=== PATIENT | male | born 1985 | race Caucasian/White ===

== ENCOUNTER 2020-07-09 07:25 | Emergency (ER) | payer OTHER, SELFPAY ==
[2020-07-09 08:04] VITALS: BP 121/79; PULSE 84; RESP 16; O2SAT 98; BMI 24.3
[2020-07-09] MEDS: Lidocaine HCl 1 % MPF 5 ML VIAL SUBCUT (08:37)
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
== END 2020-07-09 09:33 | disposition home or self-care (01) ==
PROVIDERS: Emergency Provider Emergency Medicine Emergency Medical Services; PCP Internal Medicine
DX: S81.812A Laceration without foreign body, left lower leg, initial encounter (principal); W45.8XXA Other foreign body or object entering through skin, initial encounter; Y93.02 Activity, running; Y92.413 State road as the place of occurrence of the external cause; Y99.9 Unspecified external cause status
CPT/HCPCS: 12032; 90471; 90715; 99283; 99284

== ENCOUNTER 2020-07-23 09:09 | Emergency (ER) | payer OTHER, SELFPAY ==
[2020-07-23 09:10] VITALS: BP 121/79; PULSE 90; RESP 18; TEMP 37.3; O2SAT 97; BMI 24.3
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
== END 2020-07-23 09:40 | disposition home or self-care (01) ==
PROVIDERS: Emergency Provider Emergency Medicine Emergency Medical Services; PCP Internal Medicine
DX: Z48.02 Encounter for removal of sutures (principal); Z79.899 Other long term (current) drug therapy
CPT/HCPCS: 99283

== ENCOUNTER 2021-05-12 03:11 | Emergency (ER) | payer OTHER, SELFPAY ==
[2021-05-12 03:22] VITALS: BP 148/86; PULSE 70; PULSE 74; RESP 16; TEMP 36.6; O2SAT 98; BMI 28.3
[2021-05-12 03:25] LABS: Glucose, Whole Blood 71 mg/dL (60-115)
--- NOTE | 2021-05-12 03:31 | ED.GENADULT ---
HPI - General Adult General Chief complaint: General Medical Stated complaint: HYPOGLYCEMIA Time Seen by Provider: 05/12/21 03:31 Source: patient Mode of arrival: ambulatory Limitations: no limitations History of Present Illness HPI narrative: patient took his normal amount of insulin and he did not eat enough, he felt fine all day. His girlfriend called the ambulance and he was confused. EMS gave him oral glucose but he still did not wake up. Onset (ago): minute(s) Severity: severe Associated symptoms: denies other symptoms Related Data Previous Rx's Medication Instructions Recorded pen needle, diabetic 32 gauge x #50 ea 05/05/2008/10 (Comfort EZ Pen [place]) insulin NPH isoph U-100 human 100 48 unit (0.48 mL) SUBCUT BID 01/07/21 unit/mL subcutaneous suspension Days #86.4 ml (Humulin N NPH U-100 Insulin (isophane susp)) insulin lispro 100 unit/mL 10 unit (0.1 mL) SUBCUT TID 02/08/21 subcutaneous solution (Humalog Days #27 ml U-100 Insulin) Allergies Allergy/AdvReac Type Severity Reaction Status Date / Time No Known Allergies Allergy Verified 07/23/20 09:14 Pet dander Allergy Unknown Unresponsiv Uncoded 07/23/20 09:14 e Review of Systems Constitutional: Constitutional: Reports no additional constitutional complaints Eyes: Eyes: Reports no additional eye complaints ENT: Denies dizziness Cardiovascular: Cardiovascular: Reports no additional cardiovascular complaints Respiratory: Respiratory: Reports as per HPI Gastrointestinal: Gastrointestinal: Reports no additional gastrointestinal complaints Musculoskeletal: Musculoskeletal: Reports no additional musculoskeletal complaints Integumentary/Breasts: Skin/Breast: Denies rash Neurologic: Reports system reviewed and no additional complaints, except as documented, Denies dizziness and Denies Sensory deficit (Neuro) Psychiatric: Psychiatric: Denies anxiety PMFSH Past Medical History Medical History 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, 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 Social History Social History Housing: Apartment Alcohol intake: unknown Patient Tobacco Use Status: Current someday Tobacco user Tobacco use type: Cigarette Use of substances other than those prescribed or required for medical reasons: Unknown Advance Directives: No Advance Directives Information Provided: Yes Current occupational status: employed Physical Exam Vital Signs: Vital Signs: Last Vital Signs Temp 97.4 F 05/12/21 04:18 Pulse 73 05/12/21 04:18 Resp 17 05/12/21 04:18 BP 126/87 05/12/21 04:18 Pulse Ox 97 05/12/21 04:18 BMI result Body Mass Index 28.3 Const: General: healthy appearing Nutritional Appearance: average body habitus Orientation/consciousness: oriented to person and patient oriented x3 Limitations: no limitations HENMT: Head: Yes normal to inspection Ears: external ears normal General nose exam: Normal external nose present Mouth: Normal oral and palatal mucosa present and oropharynx normal Throat: Yes posterior oropharynx normal Eyes: General: appearance normal, both eyes and all related structures Neck: Other: supple Neck: Yes normal visual inspection Chest: Chest palpation & inspection: normal inspection of the chest Resp: Auscultation: clear to auscultation bilaterally Cardio: Jugular venous distension: no JVD Rate: regular rate Rhythm: regular rhythm Heart sounds: S1 normal heart sound present and S2 normal heart sound present GI: Inspection: Yes normal to inspection Palpation (GI): Soft to palpation, nontender and No hepatosplenomegaly present Auscultation: normal bowel sounds : General: Yes no CVA tenderness Back/Spine/Pelvis: Back: no CVA tenderness Skin: General skin exam: no rashes or lesions noted Neuro: General: oriented to person and patient oriented x3 Cranial nerves: Yes CN's II-XII intact bilaterally Motor exam (neuro): 5/5 motor strength present throughout Sensory Exam: No Sensory deficit (Neuro) Extrem: General: Yes normal to inspection Psych: Appearance: grossly normal Course Reevaluation(s) Reevaluation #1: patients sugar now 145, he is awake and alert, will dc home Time: 04:44 Medical Decision Making Lab Data Labs: Lab Results 05/12/21 Range/Units 03:20 POC Glucose 71 (60-115) mg/dL Discharge Plan Discharge Clinical Impression: Hypoglycemia Patient Disposition: Home, Self-Care Instructions: Hypoglycemia in a Person with Diabetes (ED) Prescriptions: No Action (DME) pen needle, diabetic [Comfort EZ Pen [place]] 32 gauge x 3/16 needle See Rx Instructions .ROUTE .MEDSUPPLY Qty: 50 RF: 0 insulin lispro [Humalog U-100 Insulin] 100 unit/mL solution 10 unit subcut TID 90 Days Qty: 27 RF: 1 Humulin N NPH U-100 Insulin 100 unit/mL suspension 48 unit subcut BID 90 Days Qty: 86.4 RF: 1 Referrals: Physician,Unknown J [Primary Care Provider] - 5 days
[2021-05-12 04:18] VITALS: BP 126/87; PULSE 73; RESP 17; TEMP 36.3; O2SAT 97
[2021-05-12 04:47] LABS: Glucose, Whole Blood 142 mg/dL (60-115)
== END 2021-05-12 05:02 | disposition home or self-care (01) ==
PROVIDERS: Emergency Provider Emergency Medicine
DX: E10.649 Type 1 diabetes mellitus with hypoglycemia without coma (principal); Z79.4 Long term (current) use of insulin
CPT/HCPCS: 82947; 99283; 99284

== ENCOUNTER 2021-07-08 09:08 | Outpatient (REF) | payer OTHER, SELFPAY ==
[2021-07-08 11:40] LABS: Estimated Average Glucose 143 mg/dL; Hemoglobin A1c % 6.6 %
[2021-07-08 12:33] LABS: Creatinine Urine 40.58 mg/dL; Microalbumin Urine < 5.0 mg/L
[2021-07-08 13:18] LABS: Alanine Aminotransferase 20 U/L (0-40); Alkaline Phosphatase 78 U/L (39-117); Anion Gap 14 (12-20); Aspartate Amino Transferase 23 U/L (5-37); Bilirubin Total 0.8 mg/dL (0.0-1.0); Blood Urea Nitrogen 14 mg/dL (9-16); Calcium 9.5 mg/dL (8.4-10.2); Carbon Dioxide 24 mmol/L (22-29); Chloride 102 mmol/L (96-108); Cholesterol 166 mg/dL; Estimated Glomerular Filt Rate > 60; HDL Cholesterol 52 mg/dL; LDL Cholesterol Calculated 107 mg/dl; Sodium 135 mmol/L (135-145); Triglycerides 38 mg/dL
[2021-07-08 13:44] LABS: Glucose Fasting 368 mg/dL (60-99)
[2021-07-09 14:56] LABS: LDL Cholesterol Direct 107 mg/dL (<100)
== END 2021-07-08 09:09 | disposition home or self-care (01) ==
LOC: HO.HMGCLDS 09:08
PROVIDERS: Visit Provider Internal Medicine
DX: E13.9 Other specified diabetes mellitus without complications (principal); Z79.4 Long term (current) use of insulin; Z91.19 Patient's noncompliance with other medical treatment and regimen
CPT/HCPCS: 36415; 80053; 80061; 82043; 83036; 83721

== ENCOUNTER 2021-11-01 18:06 | Emergency (ER) | payer OTHER, SELFPAY ==
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
[2021-11-01 18:14] VITALS: BP 147/81; PULSE 108; RESP 18; TEMP 36.8; O2SAT 96; BMI 25.8
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
== END 2021-11-01 19:51 | disposition home or self-care (01) ==
PROVIDERS: Emergency Provider Emergency Medicine; PCP Internal Medicine
DX: M25.562 Pain in left knee (principal); E13.9 Other specified diabetes mellitus without complications; Z79.4 Long term (current) use of insulin; F17.200 Nicotine dependence, unspecified, uncomplicated
CPT/HCPCS: 73560; 99283

== ENCOUNTER 2023-01-09 14:30 | Outpatient (AMB) | payer OTHER, SELFPAY ==
--- NOTE | 2023-01-09 14:31 | A.OFFPC_ITS ---
Vital Signs 01/09/23 14:35 Height 5 ft 10 in Weight 181 lb BMI 26.0 BP 132/86 Blood Pressure Location Lt brachial Position Sitting Pulse 79 Pulse Source Pulse Oximeter Pulse Oximetry (%) 98 Oxygen Delivery Method Room Air Intake Visit Reasons: pe Allergies No Known Allergies Allergy (Verified 01/09/23 14:36) Pet dander Allergy (Unknown, Uncoded 01/13/22 15:34) Unresponsive Medication List - Last Reconciled 01/09/23 by Jay Cunha MD blood-glucose sensor (FreeStyle Vishnu 3 Sensor device) Use to monitor blood lee gars throughout the day Humalog U-100 Insulin (insulin lispro) 15 units (0.15 mL) subcut TID 90 days NS insulin NPH isoph U-100 human (Humulin N NPH U-100 Insulin (isophane susp)) 48 units in the morning and 28 units at night subcut 2 times a day; 90 days pen needle, diabetic (Comfort EZ Pen [place]) As directed Tobacco use date assessed: 01/09/23 Dental Screening Dental Screen Date: 01/09/23 Did you have a dental visit in the last 12 months?: Yes Did you have a dental problem in the last 6 months where you did not have access to dental care?: No Was dental information given to patient?: No HPI pe HPI Details Due for labs Need refills on his insulin Notified patient to have labs done every time he comes here as he is coming every 6 months for follow-up Complaining of pain right test is for the past 1 month, patient says that it feels sore when touched. On examination it feels firmer and slightly enlarged compared to left . I have ordered scrotal ultrasound and I have also placed a referral for him to be evaluated by Urology. [facility] Medical History 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, managed as type 1 [facility]FP (current) use of insulin Social History Housing: Apartment Alcohol intake: unknown Patient Tobacco Use Status: Current someday Tobacco user Tobacco use type: Cigarette Cigarettes Per Day: 5 e-Cigarette/Vaping Use: Never Used service: No Current occupational status: employed Cognitive needs: No Hearing needs: No Vision needs: No Questionnaire PHQ-9 Over the last 2 weeks, how often have you been bothered by any of the following problems? 1. Little interest or pleasure in doing things: not at all 2. Feeling down, depressed, or hopeless: not at all 3. Trouble falling or staying asleep, or sleeping too much: not at all 4. Feeling tired or having little energy: not at all 5. Poor appetite or overeating: not at all 6. Feeling bad about yourself - or that you are a failure or have let yourself or your family down: not at all 7. Trouble concentrating on things, such as reading the newspaper or watching television: not at all 8. Moving or speaking so slowly that other people could have noticed. Or the opposite - being so fidgety or restless that you have been moving around a lot more than usual: not at all 9. Thoughts that you would be better off or of hurting yourself in some way: not at all Total score: 0 Depression Screening Interpretation: Negative 21665 - PHQ-9 Billing: Yes Source: Developed by Drs. Roland Mcdermott, Ann Stafford, Jay Zendejas and colleagues, with an educational rohith from [employer]. Thrive Questionnaire Date Thrive assessed: 01/09/23 I am a: Patient What is your living situation today?: I have a steady place to live Within the past 12 months, did the food you bought not last and you didn't have the money to get more?: Never true Within the past 12 months, did you worry whether your food would run out before you got money to buy more?: Never true Do you have trouble paying for medicines?: No Do you have trouble getting transportation to medical appointments?: No Do you have trouble paying your heating and electricity bill?: No Do you have trouble taking care of your child, family member or friend?: No Do you have trouble with day-to-day activities such as bathing, preparing meals, shopping, managing finances, etc.?: No Are you currently unemployed and looking for a job?: No Are you interested in more education?: No AUDIT C Alcohol Use Questionnaire (AUDIT-C) 1. How often do you have a drink containing alcohol?: 2-3 times a week 2. How many drinks containing alcohol do you have on a typical day when you are drinking?: 3 or 4 3. How often do you have six or more drinks on one occasion?: Never Total Score: 4 Score Reviewed/Action Taken: Yes MERRILL-7 AMB Questionnaire MERRILL-7 Date MERRILL - 7 assessed: 01/09/23 Feeling nervous, anxious, or on edge: 0 = Not at all Not being able to stop or control worryin = Not at all Worrying too much about different things: 0 = Not at all Trouble relaxin = Not at all Being so restless that it is hard to sit still: 0 = Not at all Becoming easily annoyed or irritable: 0 = Not at all Feeling afraid as if something awful might happen: 0 = Not at all Total MERRILL-7 score (0-4 normal; 5-9 mild; 10-14 moderate; 15-21 severe): 0 Source: Developed by Drs. Roland Mcdermott, Ann Stafford, Jay Zendejas and colleagues, with an educational rohith from [employer]. MERRILL-7 Assessment Billing MERRILL-7 Assessment Tool: MERRILL-7 Assessment 93055 Review of Systems Const Denies chills, Denies fever(s) and Denies headache(s) Eyes Denies blurry vision ENT Denies headache(s), Denies nasal discharge, Denies nasal obstruction, Denies odynophagia and Denies sinus pain Card Denies chest pain at rest and Denies chest pain with activity Resp Denies cough and Denies hemoptysis GI Denies diarrhea, Denies odynophagia, Denies vomiting and Denies hematemesis Reports as per HPI Musc Denies abnormal gait Skin/Breast Reports as per HPI Neuro Denies Neuro-related abnormal movements, Denies Abnormal speech present, Denies abnormal gait, Denies headache(s) and Denies Sensory deficit (Neuro) Psych Denies mood swings and Denies paranoia Endo Reports as per HPI Alireza/Lymph Reports as per HPI Aller/Immun Reports as per HPI Physical exam (Primary Care) Vital Signs: Last Vital Signs Pulse 79 01/09/23 14:35 BP 132/86 01/09/23 14:35 Pulse Ox 98 01/09/23 14:35 Oxygen Delivery Method Room Air 01/09/23 14:35 BMI result Body Mass Index 26.0 Tobacco/Smoking Status: Tobacco use Status Tobacco use date assessed 01/09/23 01/09/23 14:36 Patient Tobacco Use Status Current someday Tobacco 01/09/23 14:32 Tobacco use type Cigarette 01/09/23 14:32 e-Cigarette/Vaping Use Never Used 01/09/23 14:32 PHQ-9: PHQ-9 Score PHQ-9: Total score 0 01/09/23 15:12 Depression Screening Interpretation: Negative Thrive Assessment: Date of Thrive Assessment Date Thrive assessed 01/09/23 01/09/23 15:12 Const General: cooperative, comfortable and no acute distress Orientation/consciousness: patient oriented x3 HENMT Head: Yes normocephalic and Yes atraumatic Eyes General: appearance normal, both eyes and all related structures Pupils: Equal, round and reactive pupils present EOM: EOMs intact bilaterally Neck Neck: Yes supple and No lymphadenopathy Thyroid: Thyroid normal Lymphatic: no lymphadenopathy noted Resp Effort & Inspection: normal respiratory effort and able to speak in complete sentences Auscultation: clear to auscultation bilaterally Cardio Heart sounds: S1 normal heart sound present and S2 normal heart sound present GI Palpation (GI): Soft to palpation and nontender Auscultation: normal bowel sounds General: Yes no CVA tenderness Male genitals images: 1. Firmer and larger than left Back/Spine/Pelvis Back: no CVA tenderness Skin General skin exam: elasticity normal and turgor normal Neuro General: patient oriented x3 and gait normal Cranial nerves: Yes Equal, round and reactive pupils present Speech: No Abnormal speech present Sensory Exam: No Sensory deficit (Neuro) Coordination: tandem gait normal and Romberg test negative Extrem General: Yes normal exam except as noted and No edema Assessment and Plan Assessment & Plan (1) Encounter for general adult medical examination with abnormal findings: Code(s): Z00.01 - Encounter for general adult medical examination with abnormal findings (2) 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, managed as type 1: Code(s): E13.9 - Other specified diabetes mellitus without complications (3) MCFP (current) use of insulin: Code(s): Z79.4 - [facility]FP (current) use of insulin (4) Testicular pain, right: Code(s): N50.811 - Right testicular pain Plan Due for labs Need refills on his insulin Notified patient to have labs done every time he comes here as he is coming every 6 months for follow-up Complaining of pain right test is for the past 1 month, patient says that it feels sore when touched. On examination it feels firmer and slightly enlarged compared to left . I have ordered scrotal ultrasound and I have also placed a referral for him to be evaluated by Urology. Orders: Orders Comprehensive Met. Panel Today E13.9 - Other specified diabetes mellitus without complications, Z00.01 - Encounter for general adult medical examination with abnormal findings, Z79.4 - extermination inspector (current) use of insulin Hemoglobin A1c Today E13.9 - Other specified diabetes mellitus without complications, Z00.01 - Encounter for general adult medical examination with abnormal findings, Z79.4 - [facility] (current) use of insulin LDL Cholesterol Direct Today E13.9 - Other specified diabetes mellitus without complications, Z00.01 - Encounter for general adult medical examination with abnormal findings, Z79.4 - [facility] (current) use of insulin Microalbumin, Random (w Creat) Today E13.9 - Other specified diabetes mellitus without complications, Z00.01 - Encounter for general adult medical examination with abnormal findings, Z79.4 - extermination inspector (current) use of insulin Complete Blood Count Auto Diff Today E13.9 - Other specified diabetes mellitus without complications, Z00.01 - Encounter for general adult medical examination with abnormal findings, Z79.4 - extermination inspector (current) use of insulin US scrotum Today N50.811 - Right testicular pain Comprehensive Met. Panel 6 Months E13.9 - Other specified diabetes mellitus without complications, Z79.4 - extermination inspector (current) use of insulin Hemoglobin A1c 6 Months E13.9 - Other specified diabetes mellitus without complications, Z79.4 - [facility] (current) use of insulin Referrals Urology Referral N50.811 - Right testicular pain Medications: Refilled insulin NPH isoph U-100 human (Humulin N NPH U-100 Insulin (isophane susp)) 48 units in the morning and 28 units at night subcut 2 times a day; 86.4 mL 1RF 90 days E13.9 - Other specified diabetes mellitus without complications, Z79.4 - [facility] (current) use of insulin Humalog U-100 Insulin (insulin lispro) 15 units (0.15 mL) subcut TID 30 mL 1RF 90 days NS Coding Level of Care Code Est Pt Prev Care 18-39y(57318) Diagnoses Encounter for general adult medical examination with abnormal findings Z00.01 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, managed as type 1 E13.9 [facility]FP (current) use of insulin Z79.4 Testicular pain, right N50.811 Additional Codes MERRILL-7 Assessment Billing - MERRILL-7 Assessment Tool: MERRILL-7 Assessment 93254 ([id number])
[2023-01-09 14:35] VITALS: BP 132/86; PULSE 79; O2SAT 98; BMI 26.0
== END 2023-01-09 15:58 | disposition home or self-care (01) ==
PROVIDERS: Visit Provider Internal Medicine
DX: Z00.01 Encounter for general adult medical examination with abnormal findings (principal); E13.9 Other specified diabetes mellitus without complications; Z79.4 Long term (current) use of insulin; N50.811 Right testicular pain
CPT/HCPCS: 99395

== ENCOUNTER 2023-01-09 14:56 | Outpatient (REF) | payer OTHER, SELFPAY ==
[2023-01-09 16:15] LABS: Basophils Absolute Auto 0.1 X10*3/uL (0.0-0.2); Basophils Percent Auto 0.7 % (0-2); Eosinophils Absolute Auto 0.2 X10*3/uL (0.0-0.4); Eosinophils Percent Auto 2.2 % (0-4); Hematocrit 43.6 % (42.0-52.0); Hemoglobin 14.1 g/dl (14.0-18.0); Imm Gran Abs Auto 0.05 X10*3/uL (0.00-0.03); Imm Gran Pct Auto 0.7 % (0.0-0.4); Lymphocytes Absolute Auto 1.5 X10*3/uL (1.2-4.9); MANUAL DIFF FLAG NO; Mean Corpuscular HGB Conc 32.3 g/dl (31.0-36.0); Mean Corpuscular Hemoglobin 29.6 pg (27.0-33.0); Mean Corpuscular Volume 91.4 fL (80.0-98.0); Mean Platelet Volume 10.1 fL (9.4-12.4); Monocytes Absolute Auto 0.4 X10*3/uL (0.1-1.2); Neutrophils Absolute Auto 5.1 x10*3/uL (2.0-8.3); Neutrophils Percent Auto 69.4 % (45-73); Platelet Count 414 X10*3/uL (160-400); Red Blood Count 4.77 X10*6/uL (4.60-5.80); Red Cell Distribution Width 12.7 % (11.0-16.0); White Blood Count 7.3 X10*3/uL (4.8-10.8)
[2023-01-09 16:32] LABS: Estimated Average Glucose 151 mg/dL; Hemoglobin A1c % 6.9 %
[2023-01-09 16:35] LABS: Alanine Aminotransferase 17 U/L (0-40); Albumin Level 4.5 g/dL (3.5-5.0); Alkaline Phosphatase 77 U/L (39-117); Anion Gap 13 (12-20); Aspartate Amino Transferase 24 U/L (5-37); Bilirubin Total 0.5 mg/dL (0.0-1.0); Blood Urea Nitrogen 13 mg/dL (9-16); Calcium 9.9 mg/dL (8.4-10.2); Carbon Dioxide 33 mmol/L (22-29); Chloride 101 mmol/L (96-108); Estimated Glomerular Filt Rate > 60; Glucose Random 91 mg/dL (60-115); Potassium 4.5 mmol/L (3.3-5.1); Sodium 142 mmol/L (135-145); Total Protein 7.8 g/dL (6.5-8.0)
[2023-01-09 16:50] LABS: Creatinine Urine 41.14 mg/dL; Microalbumin Urine < 5.0 mg/L
[2023-01-10 11:24] LABS: LDL Cholesterol Direct 112 mg/dL (<100)
== END 2023-01-09 14:57 | disposition home or self-care (01) ==
LOC: HO.HMGCLDS 14:56
PROVIDERS: PCP Internal Medicine; Visit Provider Internal Medicine
DX: Z00.01 Encounter for general adult medical examination with abnormal findings (principal); E13.9 Other specified diabetes mellitus without complications; Z79.4 Long term (current) use of insulin
CPT/HCPCS: 36415; 80053; 82043; 83036; 83721; 85025

== ENCOUNTER 2023-01-16 14:27 | Outpatient (REF) | payer OTHER, SELFPAY ==
--- NOTE | ~2023-01-16 | US_ITS ---
EXAMINATION: US SCROTUM CLINICAL INFORMATION: Right testicular pain. COMPARISON: CT abdomen and pelvis without contrast 06/23/2014. TECHNIQUE: A sonogram of the scrotum was performed assessing de leon-scale appearance and color Doppler flow. Spectral Doppler analysis of the arterial and venous flow were performed in the testes bilaterally. FINDINGS: RIGHT: Right testicle measures 4.77 x 2.20 x 2.96 cm, volume 16.3 mL. No focal testicular parenchymal lesions are visualized. Spectral Doppler analysis of the arterial and venous flow is normal in the right testis. There is a 3 mm scrotal chu. Right epididymal head is normal in size. Small hydrocele. Small varicocele. Right epididymal Doppler flow is normal. LEFT: Left testicle measures 3.86 x 1.78 x 2.16 cm, volume 7.77 mL. No focal testicular parenchymal lesions are visualized. Spectral Doppler analysis of the arterial and venous flow is normal in the left testis. Left epididymal head is normal in size. Small hydrocele. Small varicocele. Left epididymal Doppler flow is normal. US/US scrotum IMPRESSION: Normal testicles. Small bilateral varicoceles. Small bilateral hydroceles.
== END 2023-01-16 14:28 | disposition home or self-care (01) ==
LOC: HO.HMGCX 14:27
PROVIDERS: PCP Internal Medicine; Visit Provider Internal Medicine
DX: N50.811 Right testicular pain (principal)
CPT/HCPCS: 76870

== ENCOUNTER 2023-03-12 14:57 | Outpatient (AMB) | payer OTHER, SELFPAY ==
--- NOTE | 2023-03-12 15:00 | MHC.OFFVIS ---
Intake Intake Visit Reasons: Hydrocele//varicoceles Intake Note: NEW Patient presents today to established treatment for Hydrocele & Varicoceles: Meds- None Allergies to Antibiotic- No Known Allergies Blood Thinner- None Body Piercer Required: No Accompanied by: Self / Same As Patient Allergies No Known Allergies Allergy (Verified 01/09/23 14:36) Pet dander Allergy (Unknown, Uncoded 01/13/22 15:34) Unresponsive HPI HPI Comments History of Present Illness Details Eduardo is a 37-year-old male who presents today to the office to establish as a new patient for an evaluation of Testicular pain. 03/12/23? He has a past medical history significant for diabetes. Patient states having right testicular pain for a several weeks. He rates the pain as 3-4/10. He has not needed to use any medication for pain relief. He is concerned because he felt that the right testicle was firmer than the left. I reviewed Scotal US results: no intra testicular masses noted, normal blood flow. small bilateral varicoceles and small bilateral hydroceles which are not clinically significant. Evaluation today?UA? leukocytes: negative; blood: negative. Plan: Conservative management, supportive athletic shorts. 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 Mother No problems noted. Social History Housing: Apartment Alcohol intake: unknown Patient Tobacco Use Status: Current someday Tobacco user Tobacco use type: Cigarette Cigarettes Per Day: 5 e-Cigarette/Vaping Use: Never Used service: No Current occupational status: employed Cognitive needs: No Hearing needs: No Vision needs: No Review of Systems Const All systems reviewed & are unremarkable except as noted in HPI and below Reports no additional complaints Eyes Reports no additional complaints ENT Reports no additional complaints Card Denies dyspnea Resp Denies cough and Denies dyspnea GI Reports no additional complaints Musc Reports no additional complaints Skin/Breast Denies rash and Denies unusual bruising Neuro Reports no additional complaints Psych Reports no additional complaints Endo Reports no additional complaints Alireza/Lymph Reports no additional complaints Aller/Immun Reports no additional complaints Physical Exam Const General: healthy appearing, no acute distress and well developed Orientation/consciousness: patient oriented x3 HEENT Head: Yes normocephalic and Yes atraumatic Eyes Conjunctivae: conjunctivae normal Neck Neck: Yes normal visual inspection Chest Chest palpation & inspection: normal inspection of the chest Resp Effort & Inspection: normal respiratory effort Cardio Rate: regular rate GI Inspection: Yes normal to inspection Palpation (GI): Soft to palpation Penis: normal penis Scrotum: scrotum normal Skin General skin exam: no rashes or lesions noted Neuro General: patient oriented x3 Extrem General: No pedal edema Psych Appearance: grossly normal Affect: normal affect Results AMB Urinalysis, Automated UA Leukoctes 0 Katie/uL Last Edit by Hannah Hensley [facility] on 03/12/23 15:20 UA Nitrite Negative Last Edit by Hannah Hensley [facility] on 03/12/23 15:20 UA Urobilinogen 0.2 mg/dL Last Edit by Hannah Hensley [facility] on 03/12/23 15:20 UA Protein 0 mg/dL Last Edit by Hannah Hensley [facility] on 03/12/23 15:20 UA pH 6.5 Last Edit by Hannah Hensley [facility] on 03/12/23 15:20 UA Blood 0 Alexandru/uL Last Edit by Hannah Hensley [facility] on 03/12/23 15:20 UA Specific [place] 1.015 Last Edit by Hannah Hensley [facility] on 03/12/23 15:20 UA Ketone Negative Last Edit by Hannah Hensley [facility] on 03/12/23 15:20 UA Bilirubin 0 mg/dL Last Edit by Hannah Hensley [facility] on 03/12/23 15:20 UA Glucose 1000 mg/dL Last Edit by Hannah Hensley [facility] on 03/12/23 15:20 3+ Hannah Hensley 03/12/23 15:20 Results Reviewed Results Reviewed: Laboratory Last Values Urine pH (Auto) 6.5 03/12/23 15:18 Specific [place] (Auto) 1.015 03/12/23 15:18 Urine Protein (Auto) 0 mg/dL 03/12/23 15:18 Glucose (UA)(Auto) 1000 mg/dL 03/12/23 15:18 Urine Ketones (Auto) Negative 03/12/23 15:18 Urine Blood (Auto) 0 Alexandru/uL 03/12/23 15:18 Urine Nitrite (Auto) Negative 03/12/23 15:18 Urine Bilirubin (Auto) 0 mg/dL 03/12/23 15:18 Urine Urobilinogen (Auto) 0.2 mg/dL 03/12/23 15:18 Leukocyte Esterase (Auto) 0 Katie/uL 03/12/23 15:18 Date of Service: 01/16/23 EXAMINATION: US SCROTUM CLINICAL INFORMATION: Right testicular pain. COMPARISON: CT abdomen and pelvis without contrast 06/23/2014. TECHNIQUE: A sonogram of the scrotum was performed assessing de leon-scale appearance and color Doppler flow. Spectral Doppler analysis of the arterial and venous flow were performed in the testes bilaterally. FINDINGS: RIGHT: Right testicle measures 4.77 x 2.20 x 2.96 cm, volume 16.3 mL. No focal testicular parenchymal lesions are visualized. Spectral Doppler analysis of the arterial and venous flow is normal in the right testis. There is a 3 mm scrotal chu. Right epididymal head is normal in size. Small hydrocele. Small varicocele. Right epididymal Doppler flow is normal. LEFT: Left testicle measures 3.86 x 1.78 x 2.16 cm, volume 7.77 mL. No focal testicular parenchymal lesions are visualized. Spectral Doppler analysis of the arterial and venous flow is normal in the left testis. Left epididymal head is normal in size. Small hydrocele. Small varicocele. Left epididymal Doppler flow is normal. IMPRESSION: Normal testicles. Small bilateral varicoceles. Small bilateral hydroceles. Assessment & Plan Assessment & Plan (1) Testicular pain, right: Code(s): N50.811 - Right testicular pain Plan Conservative management, wearing supportive athletic shorts.? FU prn Orders: Orders AMB Urinalysis Automated 03/12/23 Z13.9 - Encounter for screening, unspecified Patient Instructions: The patient had an opportunity to ask questions regarding treatment plan. All questions were answered. Imaging, Laboratory studies and physical exam results were discussed and reviewed in detail. No major barriers to understanding were identified. The patient expressed understanding and agreement with the above treatment plan.? ? ? The patient is aware they should contact our office by phone for worsening of their current condition or the appearance of new symptoms. Compliance is encouraged with any medications and followup testing that is ordered.? ? ? It is a privilege to be allowed the opportunity to participate in the urologic care of your patient. If you have any questions or concerns regarding treatment for the above conditions please do not hesitate to contact me. The office telephone contact is [phone].? ? ? This note is constructed in part using voice recognition software. While every effort has been made to ensure accuracy treasury consultant errors may have been included.? ? ? Yours sincerely,? ? ? Milton Nevarez MD? ? Coding Level of Care Code New Pt Level 3 (43805) Diagnoses Testicular pain, right N50.811
== END 2023-03-12 16:12 | disposition home or self-care (01) ==
PROVIDERS: PCP Internal Medicine; Referring Provider Internal Medicine; Visit Provider Urology
DX: N50.811 Right testicular pain (principal)
CPT/HCPCS: 99203

== ENCOUNTER → 2023-03-12 14:57 | Outpatient (BNVA) | payer OTHER, SELFPAY | PROVIDERS: PCP Internal Medicine; Referring Provider Internal Medicine; Visit Provider Urology | DX: N50.811 Right testicular pain (principal) | CPT/HCPCS: 81003 ==

== ENCOUNTER 2023-08-14 13:31 | Outpatient (AMB) | payer OTHER, SELFPAY ==
[2023-08-14 13:42] VITALS: BP 128/80; PULSE 91; O2SAT 98; BMI 25.0
--- NOTE | 2023-08-14 13:42 | MHC.PC.OV ---
Vital Signs 08/14/23 13:42 Height 5 ft 10 in Weight 174 lb 4 oz BMI 25.0 BP 128/80 Blood Pressure Location Rt brachial Position Sitting Pulse 91 Pulse Source Pulse Oximeter Pulse Oximetry (%) 98 Oxygen Delivery Method Room Air Intake Visit Reasons: Overdue Appt ~ Allergies No Known Allergies Allergy (Verified 08/14/23 13:47) Pet dander Allergy (Unknown, Uncoded 01/13/22 15:34) Unresponsive Medication List - Last Reconciled 08/14/23 by Jay Cunha MD blood-glucose sensor (FreeStyle Vishnu 3 Sensor device) Use to monitor blood sugars throughout the day insulin lispro 15 units (0.15 mL) subcut TID insulin NPH isoph U-100 human (Humulin N NPH U-100 Insulin (isophane susp)) 48 units in the morning and 28 units at night subcut 2 times a day; 90 days pen needle, diabetic (Comfort EZ Pen [place]) As directed Tobacco use date assessed: 08/14/23 Dental Screening Dental Screen Date: 08/14/23 Did you have a dental visit in the last 12 months?: Yes Did you have a dental problem in the last 6 months where you did not have access to dental care?: No Was dental information given to patient?: Patient has dentist HPI Overdue Appt ~ HPI Details Patient is 38-year-old gentleman came in today for his regular follow-up appointment Last time seen was December of last year. He also did not do his labs before this visit. He is on NPH insulin 48 units in the morning and 28 units in p.m. And lispro insulin 10 units t.i.d. His hemoglobin A1c is stable Labs to be done fasting before next visit. 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 Mother No problems noted. Social History Housing: Apartment Alcohol intake: unknown Patient Tobacco Use Status: Current someday Tobacco user Tobacco use type: Cigarette Cigarettes Per Day: 5 e-Cigarette/Vaping Use: Never Used service: No Current occupational status: employed Cognitive needs: No Hearing needs: No Vision needs: No Questionnaire PHQ-9 Over the last 2 weeks, how often have you been bothered by any of the following problems? 1. Little interest or pleasure in doing things: not at all 2. Feeling down, depressed, or hopeless: not at all 3. Trouble falling or staying asleep, or sleeping too much: not at all 4. Feeling tired or having little energy: not at all 5. Poor appetite or overeating: not at all 6. Feeling bad about yourself - or that you are a failure or have let yourself or your family down: not at all 7. Trouble concentrating on things, such as reading the newspaper or watching television: not at all 8. Moving or speaking so slowly that other people could have noticed. Or the opposite - being so fidgety or restless that you have been moving around a lot more than usual: not at all 9. Thoughts that you would be better off or of hurting yourself in some way: not at all Total score: 0 Depression Screening Interpretation: Negative Depression Screening Done: Yes 29398 - PHQ-9 Billing: Yes Source: Developed by Drs. Roland Mcdermott, Ann Stafford, Jay Zendejas and colleagues, with an educational rohith from [employer] Thrive Questionnaire Date Thrive assessed: 08/14/23 I am a: Patient What is your living situation today?: I have a steady place to live Within the past 12 months, did the food you bought not last and you didn't have the money to get more?: Never true Within the past 12 months, did you worry whether your food would run out before you got money to buy more?: Never true Do you have trouble paying for medicines?: No Do you have trouble getting transportation to medical appointments?: No Do you have trouble paying your heating and electricity bill?: No Do you have trouble taking care of your child, family member or friend?: No Do you have trouble with day-to-day activities such as bathing, preparing meals, shopping, managing finances, etc.?: No Are you currently unemployed and looking for a job?: No Are you interested in more education?: Yes Please select the resources that you would like help with: None Currently or been in a relationship where the following occur: no concerns reported THRIVE Score: 0 MERRILL-7 AMB Questionnaire MERRILL-7 Date MERRILL - 7 assessed: 08/14/23 Feeling nervous, anxious, or on edge: 0 = Not at all Not being able to stop or control worryin = Not at all Worrying too much about different things: 0 = Not at all Trouble relaxin = Not at all Being so restless that it is hard to sit still: 0 = Not at all Becoming easily annoyed or irritable: 0 = Not at all Feeling afraid as if something awful might happen: 0 = Not at all Total MERRILL-7 score (0-4 normal; 5-9 mild; 10-14 moderate; 15-21 severe): 0 Source: Developed by Drs. Roland Mcdermott, Ann Stafford, Jay Zendejas and colleagues, with an educational rohith from [employer] MERRILL-7 Assessment Billing MERRILL-7 Assessment Tool: MERRILL-7 Assessment 02090 Review of Systems Const Denies chills and Denies fever(s) ENT Denies epistaxis and Denies nasal discharge Card Denies chest pain Resp Denies chest congestion, Denies cough and Denies hemoptysis GI Denies diarrhea and Denies nausea Skin/Breast Denies rash Neuro Reports no additional complaints Psych Reports no additional complaints Endo Reports no additional complaints Physical exam (Primary Care) Vital Signs: Last Vital Signs Pulse 91 08/14/23 13:42 BP 128/80 08/14/23 13:42 Pulse Ox 98 08/14/23 13:42 Oxygen Delivery Method Room Air 08/14/23 13:42 BMI result Body Mass Index 25.0 Tobacco/Smoking Status: Tobacco use Status Tobacco use date assessed 08/14/23 08/14/23 13:45 Patient Tobacco Use Status Current someday Tobacco 08/14/23 13:45 Tobacco use type Cigarette 08/14/23 13:45 e-Cigarette/Vaping Use Never Used 08/14/23 13:45 PHQ-9: PHQ-9 Score PHQ-9: Total score 0 08/14/23 13:57 Depression Screening Interpretation: Negative Thrive Assessment: Date of Thrive Assessment Date Thrive assessed 08/14/23 08/14/23 13:55 Currently or been in a relationship where the following occur: no concerns reported Const General: cooperative, comfortable and no acute distress Orientation/consciousness: patient oriented x3 HENMT Head: Yes normocephalic Eyes General: appearance normal, both eyes and all related structures Neck Neck: Yes supple Resp Effort & Inspection: normal respiratory effort, no cough and no stridor Cardio Rhythm: regular rhythm Heart sounds: S1 normal heart sound present and S2 normal heart sound present Skin General skin exam: turgor normal Neuro General: patient oriented x3, tone normal and moves all extremities Extrem Right lower extremity: no edema Left lower extremity: no edema Assessment and Plan Assessment & Plan (1) 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, managed as type 1: Code(s): E13.9 - Other specified diabetes mellitus without complications (2) rat exterminator (current) use of insulin: Code(s): Z79.4 - rat exterminator (current) use of insulin (3) Ex-smoker: Code(s): Z87.891 - Personal history of nicotine dependence Plan Patient is 38-year-old gentleman came in today for his regular follow-up appointment Last time seen was December of last year. He also did not do his labs before this visit. He is on NPH insulin 48 units in the morning and 28 units in p.m. And lispro insulin 10 units t.i.d. His hemoglobin A1c is stable Labs to be done fasting before next visit. And also this visit Patient has stopped smoking since his last visit He has appointment in December for physical exam Orders: Orders Complete Blood Count Auto Diff 4 Months E13.9 - Other specified diabetes mellitus without complications, Z79.4 - long-term (current) use of insulin Microalbumin, Random (w Creat) 4 Months E13.9 - Other specified diabetes mellitus without complications, Z79.4 - rat exterminator (current) use of insulin Hemoglobin A1c 4 Months E13.9 - Other specified diabetes mellitus without complications, Z79.4 - long-term (current) use of insulin Comprehensive [place]. Panel Fast 4 Months E13.9 - Other specified diabetes mellitus without complications, Z79.4 - long-term (current) use of insulin Lipid Panel 4 Months E13.9 - Other specified diabetes mellitus without complications, Z79.4 - rat exterminator (current) use of insulin Medications: Changed From insulin lispro Schedule PCP appt for future refills 15 units (0.15 mL) subcut TID 20 mL 0RF To insulin lispro 15 units (0.15 mL) subcut TID 20 mL 5RF Refilled blood-glucose sensor (FreeStyle Vishnu 3 Sensor device) Use to monitor blood sugars throughout the day 6 ea 1RF E13.9 - Other specified diabetes mellitus without complications, Z79.4 - rat exterminator (current) use of insulin insulin NPH isoph U-100 human (Humulin N NPH U-100 Insulin (isophane susp)) 48 units in the morning and 28 units at night subcut 2 times a day; 86.4 mL 1RF 90 days E13.9 - Other specified diabetes mellitus without complications, Z79.4 - long-term (current) use of insulin pen needle, diabetic (Comfort EZ Pen [place]) As directed 50 ea 6RF E13.9 - Other specified diabetes mellitus without complications Coding Level of Care Code Est Pt Level 3 (40553) Diagnoses 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, managed as type 1 E13.9 long-term (current) use of insulin Z79.4 Ex-smoker Z87.891 Additional Codes MERRILL-7 Assessment Billing - MERRILL-7 Assessment Tool: MERRILL-7 Assessment 00243 ([id number])
== END 2023-08-14 13:58 | disposition home or self-care (01) ==
PROVIDERS: PCP Internal Medicine; Visit Provider Internal Medicine
DX: E13.9 Other specified diabetes mellitus without complications (principal); Z79.4 Long term (current) use of insulin; Z87.891 Personal history of nicotine dependence
CPT/HCPCS: 99213

== ENCOUNTER 2023-08-14 13:59 | Outpatient (REF) | payer OTHER, SELFPAY ==
[2023-08-14 16:56] LABS: Alanine Aminotransferase 15 U/L (0-40); Albumin Level 4.3 g/dL (3.5-5.0); Alkaline Phosphatase 102 U/L (39-117); Anion Gap 15 (12-20); Aspartate Amino Transferase 16 U/L (5-37); Bilirubin Total 0.8 mg/dL (0.0-1.0); Blood Urea Nitrogen 16 mg/dL (9-16); Calcium 9.5 mg/dL (8.4-10.2); Carbon Dioxide 27 mmol/L (22-29); Chloride 98 mmol/L (96-108); Estimated Glomerular Filt Rate > 60; Glucose Random 380 mg/dL (60-115); Sodium 136 mmol/L (135-145); Total Protein 7.6 g/dL (6.5-8.0)
== END 2023-08-14 14:00 | disposition home or self-care (01) ==
LOC: HO.HMGCLDS 13:59
PROVIDERS: PCP Internal Medicine; Visit Provider Internal Medicine
DX: E13.9 Other specified diabetes mellitus without complications (principal); Z79.4 Long term (current) use of insulin
CPT/HCPCS: 36415; 80053

== ENCOUNTER 2024-04-14 08:21 | Outpatient (REF) | payer OTHER, SELFPAY ==
[2024-04-14 09:59] LABS: MANUAL DIFF FLAG NO
[2024-04-14 10:21] LABS: Basophils Absolute Auto 0.1 X10*3/uL (0.0-0.2); Basophils Percent Auto 0.7 % (0-2); Eosinophils Absolute Auto 0.1 X10*3/uL (0.0-0.4); Eosinophils Percent Auto 1.1 % (0-4); Hematocrit 43.3 % (42.0-52.0); Hemoglobin 14.7 g/dl (14.0-18.0); Imm Gran Abs Auto 0.08 X10*3/uL (0.00-0.03); Imm Gran Pct Auto 0.9 % (0.0-0.4); Lymphocytes Absolute Auto 1.7 X10*3/uL (1.2-4.9); Lymphocytes Percent Auto 19.8 % (20-40); Mean Corpuscular HGB Conc 33.9 g/dl (31.0-36.0); Mean Corpuscular Hemoglobin 30.4 pg (27.0-33.0); Mean Corpuscular Volume 89.5 fL (80.0-98.0); Mean Platelet Volume 9.9 fL (9.4-12.4); Monocytes Absolute Auto 0.5 X10*3/uL (0.1-1.2); Monocytes Percent Auto 6.2 % (2-11); Neutrophils Percent Auto 71.3 % (45-73); Platelet Count 362 X10*3/uL (160-400); Red Blood Count 4.84 X10*6/uL (4.60-5.80); Red Cell Distribution Width 12.5 % (11.0-16.0); White Blood Count 8.4 X10*3/uL (4.8-10.8)
[2024-04-14 10:24] LABS: Estimated Average Glucose 192 mg/dL; Hemoglobin A1C 261.0964 umol/L; Hemoglobin A1c % 8.3 % (<6.0); Total Hemoglobin (HGBA1C) 3885.9698 umol/L
[2024-04-14 10:34] LABS: Alanine Aminotransferase 16 U/L (0-40); Alkaline Phosphatase 89 U/L (39-117); Anion Gap 10 (12-20); Aspartate Amino Transferase 23 U/L (5-37); Bilirubin Total 1.1 mg/dL (0.0-1.0); Blood Urea Nitrogen 18 mg/dL (9-16); Calcium 9.2 mg/dL (8.4-10.2); Carbon Dioxide 29 mmol/L (22-29); Chloride 102 mmol/L (96-108); Cholesterol 178 mg/dL (<200); Estimated Glomerular Filt Rate > 60; Glucose Fasting 222 mg/dL (60-99); HDL Cholesterol 63 mg/dL (>40); LDL Cholesterol Calculated 101 mg/dL (<100); Sodium 137 mmol/L (135-145); Total Protein 6.9 g/dL (6.5-8.0); Triglycerides 74 mg/dL (<150)
[2024-04-14 11:09] LABS: Creatinine Urine 81.96 mg/dL; Microalbum/Creatinine Ratio Ur 13.4 ug/mg cr (<30)
== END 2024-04-14 08:22 | disposition home or self-care (01) ==
LOC: HO.HMGCLDS 08:21
PROVIDERS: PCP Internal Medicine; Visit Provider Internal Medicine
DX: E13.9 Other specified diabetes mellitus without complications (principal); Z79.4 Long term (current) use of insulin
CPT/HCPCS: 36415; 80053; 80061; 82043; 82570; 83036; 85025

== ENCOUNTER 2024-04-15 15:10 | Outpatient (AMB) | payer OTHER, SELFPAY ==
[2024-04-15 15:11] VITALS: BP 132/84; PULSE 102; O2SAT 99; BMI 24.6
--- NOTE | 2024-04-15 15:11 | MHC.PC.OV ---
Vital Signs 04/15/24 15:11 Height 5 ft 10 in Weight 171 lb 4 oz BMI 24.6 BP 132/84 Blood Pressure Location Rt brachial Position Sitting Pulse 102 H Pulse Source Pulse Oximeter Pulse Oximetry (%) 99 Oxygen Delivery Method Room Air Intake Visit Reasons: diabetes followup Allergies No Known Allergies Allergy (Verified 04/15/24 15:12) Pet dander Allergy (Unknown, Uncoded 01/13/22 15:34) Unresponsive Medication List - Last Reconciled 04/15/24 by Jay Cunha MD blood-glucose sensor (FreeStyle Vishnu 3 Sensor device) Use to monitor blood sugars throughout the day insulin lispro 15 units (0.15 mL) subcut TID insulin NPH isoph U-100 human (Humulin N NPH U-100 Insulin (isophane susp)) 48 units in the morning and 28 units at night subcut 2 times a day; 90 days pen needle, diabetic (Comfort EZ Pen [place]) As directed Tobacco use date assessed: 04/15/24 Dental Screening Dental Screen Date: 04/15/24 Did you have a dental visit in the last 12 months?: Yes Did you have a dental problem in the last 6 months where you did not have access to dental care?: No Was dental information given to patient?: Patient has dentist HPI diabetes followup HPI Details Patient missed his physical exam appointment in December Her labs done recently His hemoglobin A1c has gone up to 8.3% He is currently taking NPH insulin 48 units in the morning and 28 at night along with short-acting insulin 15 units t.i.d. Patient says that he has been under lot of stress and in the middle of move and so was not able to comply with a diabetic diet He feels that he can control his sugar Requesting a script for meloxicam which we will sent for him Patient will book another appointment for physical exam in 4 months Labs are needed before visit. 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 Mother No problems noted. Social History Housing: Apartment Alcohol intake: unknown Patient Tobacco Use Status: Current someday Tobacco user Tobacco use type: Cigarette Cigarettes Per Day: 5 e-Cigarette/Vaping Use: Never Used service: No Current occupational status: employed Cognitive needs: No Hearing needs: No Vision needs: No Questionnaire Thrive Questionnaire Date Thrive assessed: 08/14/23 AUDIT C Alcohol Use Questionnaire (AUDIT-C) 1. How often do you have a drink containing alcohol?: 2-3 times a week 2. How many drinks containing alcohol do you have on a typical day when you are drinking?: 3 or 4 3. How often do you have six or more drinks on one occasion?: Never Total Score: 4 Score Reviewed/Action Taken: Yes MERRILL-7 AMB Questionnaire MERRILL-7 Date MERRILL - 7 assessed: 08/14/23 Source: Developed by Drs. Roland Mcdermott, Ann Stafford, Jay Zendejas and colleagues, with an educational rohith from [employer] Review of Systems Const Denies chills and Denies fever(s) ENT Denies epistaxis and Denies nasal discharge Card Denies chest pain Resp Denies chest congestion, Denies cough and Denies hemoptysis GI Denies diarrhea and Denies nausea Skin/Breast Denies rash Neuro Reports no additional complaints Psych Reports no additional complaints Endo Reports no additional complaints Physical exam (Primary Care) Vital Signs: Last Vital Signs Pulse 102 H 04/15/24 15:11 BP 132/84 04/15/24 15:11 Pulse Ox 99 04/15/24 15:11 Oxygen Delivery Method Room Air 04/15/24 15:11 BMI result Body Mass Index 24.6 Tobacco/Smoking Status: Tobacco use Status Tobacco use date assessed 04/15/24 04/15/24 15:15 Patient Tobacco Use Status Current someday Tobacco 04/15/24 15:15 Tobacco use type Cigarette 04/15/24 15:15 e-Cigarette/Vaping Use Never Used 04/15/24 15:15 Thrive Assessment: Date of Thrive Assessment Date Thrive assessed 08/14/23 04/15/24 15:15 Const General: cooperative, comfortable and no acute distress Orientation/consciousness: patient oriented x3 HENMT Head: Yes normocephalic Eyes General: appearance normal, both eyes and all related structures Neck Neck: Yes supple Resp Effort & Inspection: normal respiratory effort, no cough and no stridor Cardio Rhythm: regular rhythm Heart sounds: S1 normal heart sound present and S2 normal heart sound present Skin General skin exam: turgor normal Neuro General: patient oriented x3, tone normal and moves all extremities Extrem Right lower extremity: no edema Left lower extremity: no edema Coding Level of Care Code Est Pt Level 3 (05192) Diagnoses 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, managed as type 1 E13.9 termite control service representative (current) use of insulin Z79.4 Assessment & Plan Assessment & Plan (1) 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, managed as type 1: Code(s): E13.9 - Other specified diabetes mellitus without complications Category: Medical (2) long-term (current) use of insulin: Code(s): Z79.4 - termite control service representative (current) use of insulin Category: Medical Plan Patient missed his physical exam appointment in December Her labs done recently His hemoglobin A1c has gone up to 8.3% He is currently taking NPH insulin 48 units in the morning and 28 at night along with short-acting insulin 15 units t.i.d. Patient says that he has been under lot of stress and in the middle of move and so was not able to comply with a diabetic diet He feels that he can control his sugar Requesting a script for meloxicam which we will sent for him Patient will book another appointment for physical exam in 4 months Labs are needed before visit. Orders: Orders Hemoglobin A1c 3 Months E13.9 - Other specified diabetes mellitus without complications, Z79.4 - termite control service representative (current) use of insulin Microalbumin, Random (w Creat) 3 Months E13.9 - Other specified diabetes mellitus without complications, Z79.4 - termite control service representative (current) use of insulin Comprehensive Met. Panel 3 Months E13.9 - Other specified diabetes mellitus without complications, Z79.4 - termite control service representative (current) use of insulin Complete Blood Count Auto Diff 3 Months E13.9 - Other specified diabetes mellitus without complications, Z79.4 - termite control service representative (current) use of insulin
== END 2024-04-15 15:32 | disposition home or self-care (01) ==
PROVIDERS: PCP Internal Medicine; Visit Provider Internal Medicine
DX: E13.9 Other specified diabetes mellitus without complications (principal); Z79.4 Long term (current) use of insulin

== ENCOUNTER → 2024-04-15 15:10 | Outpatient (BNVA) | payer OTHER, SELFPAY | PROVIDERS: PCP Internal Medicine; Visit Provider Internal Medicine ==

== ENCOUNTER 2024-11-07 15:19 | Outpatient (AMB) | payer OTHER, SELFPAY ==
--- NOTE | 2024-11-07 15:21 | A.OFFPC_ITS ---
Vital Signs 11/07/24 15:22 Height 5 ft 10 in Weight 189 lb BMI 27.1 BP 128/72 Blood Pressure Location Rt brachial Position Sitting Respiration 18 Pulse 107 H Pulse Source Pulse Oximeter Temp 98.3 F Temp Source Oral Pulse Oximetry (%) 96 Oxygen Delivery Method Room Air Intake Visit Reasons: CPE Allergies No Known Allergies Allergy (Verified 04/15/24 15:12) Pet dander Allergy (Unknown, Uncoded 01/13/22 15:34) Unresponsive Medication List - Last Reconciled 11/07/24 by Jay Cunha MD blood-glucose sensor (FreeStyle Vishnu 3 Sensor device) Use to monitor blood sugars throughout the day Dexcom G7 Sensor (blood-glucose sensor) check blood sugar twice daily NS insulin lispro 15 units (0.15 mL) subcut TID insulin NPH isoph U-100 human (Humulin N NPH U-100 Insulin (isophane susp)) 48 units in the morning and 28 units at night subcut 2 times a day; 90 days pen needle, diabetic (Comfort EZ Pen [place]) As directed Tobacco use date assessed: 11/07/24 Dental Screening Dental Screen Date: 11/07/24 Did you have a dental visit in the last 12 months?: Yes Did you have a dental problem in the last 6 months where you did not have access to dental care?: No Was dental information given to patient?: Patient has dentist HPI CPE HPI Details History - The patient is a 39-year-old male pres enting for an annual physical exam and follow-up on his diabetes management. - The patient reports that his hemoglobi n A1c in March was 8.3%, higher than his usual 7.0%. - The patient attributes the rise in A1c to stress associated with relocating to a new house. - Blood glucose monitoring with a Dexcom sensor system over the last 30 days indicates improvement, with levels around 6.6%. - The patient denies any symptoms of kayode st pain, shortness of breath, nausea, vomiting, burning in the feet, or pain suggestive of neuropathy. - No reported dietary changes related to the management of his diabetes. Medical History: - Diabetes mellitus Medications: - Short-acting insulin, 15 units, three times daily for diabetes management - NPH insulin, 40 units in the morning a nd 28 at night for diabetes management - Dexcom continuous glucose monitoring s [employer] [place] [employer] (no indication provided) Social History: - The patient recently moved into a new house, contributing to reported stress levels. - Mention of managing expenses, such as the cost of Dexcom sensors, indicating budget considerations in the household. Diagnostic Results: - Labs: Hemoglobin A1c was 8.3% in Novem barbara. Problem List - Diabetes Mellitus - Continued monitoring of blood glucose levels through continuous glucose monitoring (Dexcom). - A rise in stress-associated factors du e to relocation. Patient Instructions - Schedule and complete pending lab work . - Consult with the insurance company [employer] coverage and costs for continuous glucose monitoring devices. - Schedule an eye exam, as it's been campos e time since the last check-up. - Refill existing prescriptions as discu ssed. Review of Systems - General: No fever no chills - Neurological: No headaches no dizziness - Ear nose throat: No sore throat no hearing difficulty no ear pain - Cardiovascular: No syncope, no chest pain, no palpitations - Gastrointestinal: No nausea vomiting or diarrhea - Endocrine: No polyuria polydipsia no heat intolerance - Genitourinary: No dysuria , no blood in urine Physical Exam - General: No acute distress - HEENT: No acute findings - Neck: Supple - Respiratory system: Able to talk in f ull sentences, no audible wheeze - Cardiovascular: S1-S2 regular in rate and rhythm - Gastrointestinal: No pain - Extremities: No new findings - SENIOR WINDOWS ADMINISTRATOR: Alert awake oriented x3 motor se nsory intact , balance intact, tandem pass - Skin: Normal turgor [facility] 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 Mother No problems noted. Social History Housing: Apartment Alcohol intake: unknown Patient Tobacco Use Status: Former Tobacco user Tobacco use type: Cigarette Cigarettes Per Day: 5 e-Cigarette/Vaping Use: Never Used service: No Current occupational status: employed Cognitive needs: No Hearing needs: No Vision needs: No Questionnaire PHQ-9 Over the last 2 weeks, how often have you been bothered by any of the following problems? 1. Little interest or pleasure in doing things: not at all 2. Feeling down, depressed, or hopeless: not at all 3. Trouble falling or staying asleep, or sleeping too much: not at all 4. Feeling tired or having little energy: not at all 5. Poor appetite or overeating: not at all 6. Feeling bad about yourself - or that you are a failure or have let yourself or your family down: not at all 7. Trouble concentrating on things, such as reading the newspaper or watching television: not at all 8. Moving or speaking so slowly that other people could have noticed. Or the opposite - being so fidgety or restless that you have been moving around a lot more than usual: not at all 9. Thoughts that you would be better off or of hurting yourself in some way: not at all Total score: 0 Source: Developed by Drs. Roland Mcdermott, Ann Stafford, Jay Zendejas and colleagues, with an educational rohith from [employer]. Thrive Questionnaire Date Thrive assessed: 11/04/24 I am a: Patient What is your living situation today?: I have a steady place to live Within the past 12 months, did the food you bought not last and you didn't have the money to get more?: Never true Within the past 12 months, did you worry whether your food would run out before you got money to buy more?: Never true Do you have trouble paying for medicines?: Yes Do you have trouble getting transportation to medical appointments?: No Do you have trouble paying your heating and electricity bill?: No Do you have trouble taking care of your child, family member or friend?: No Do you have trouble with day-to-day activities such as bathing, preparing meals, shopping, managing finances, etc.?: No Are you currently unemployed and looking for a job?: No Are you interested in more education?: Yes Please select the resources that you would like help with: Paying for medicine Currently or been in a relationship where the following occur: I choose not to answer THRIVE Score: 0 AUDIT C Alcohol Use Questionnaire (AUDIT-C) 1. How often do you have a drink containing alcohol?: 2-4 times a month 2. How many drinks containing alcohol do you have on a typical day when you are drinking?: 3 or 4 3. How often do you have six or more drinks on one occasion?: Never Total Score: 3 MERRILL-7 AMB Questionnaire MERRILL-7 Date MERRILL - 7 assessed: 08/14/23 Feeling nervous, anxious, or on edge: 0 = Not at all Not being able to stop or control worryin = Not at all Worrying too much about different things: 0 = Not at all Trouble relaxin = Not at all Being so restless that it is hard to sit still: 0 = Not at all Becoming easily annoyed or irritable: 0 = Not at all Feeling afraid as if something awful might happen: 0 = Not at all Total MERRILL-7 score (0-4 normal; 5-9 mild; 10-14 moderate; 15-21 severe): 0 Source: Developed by Drs. Roland Mcdermott, Ann Stafford, Jay goss nd colleagues, with an educational rohith from [employer]. Physical exam (Primary Care) Vital Signs: Last Vital Signs Temp 98.3 F 11/07/24 15:22 Pulse 107 H 11/07/24 15:22 Resp 18 11/07/24 15:22 BP 128/72 11/07/24 15:22 Pulse Ox 96 11/07/24 15:22 Oxygen Delivery Method Room Air 11/07/24 15:22 BMI result Body Mass Index 27.1 Tobacco/Smoking Status: Tobacco use Status Tobacco use date assessed 11/07/24 11/07/24 15:25 Patient Tobacco Use Status Former Tobacco user 11/07/24 15:25 Tobacco use type Cigarette 11/07/24 15:25 e-Cigarette/Vaping Use Never Used 11/07/24 15:25 PHQ-9: PHQ-9 Score PHQ-9: Total score 0 11/07/24 15:36 Thrive Assessment: Date of Thrive Assessment Date Thrive assessed 11/04/24 11/07/24 15:25 Currently or been in a relationship where the following occur: I choose not to answer Coding Level of Care Code Est Pt Prev Care [id number]) Diagnoses Adult general medical exam Z00.00 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, managed as type 1 E13.9 jail (current) use of insulin Z79.4 Assessment & Plan Assessment & Plan (1) Adult general medical exam: Code(s): Z00.00 - Encounter for general adult medical examination without abnormal findings Category: Medical (2) 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, managed as type 1: Code(s): E13.9 - Other specified diabetes mellitus without complications Category: Medical (3) terminal operations manager (current) use of insulin: Code(s): Z79.4 - terminal operations manager (current) use of insulin Category: Medical Plan History - The patient is a 39-year-old male presenting for an annual physical exam and follow-up on his diabetes management. - The patient reports that his hemoglobin A1c in March was 8.3%, higher than his usual 7.0%. - The patient attributes the rise in A1c to stress associated with relocating to a new house. - Blood glucose monitoring with a Dexcom sensor system over the last 30 days indicates improvement, with levels around 6.6%. - The patient denies any symptoms of chest pain, shortness of breath, nausea, vomiting, burning in the feet, or pain suggestive of neuropathy. - No reported dietary changes related to the management of his diabetes. Medical History: - Diabetes mellitus Medications: - Short-acting insulin, 15 units, three times daily for diabetes management - NPH insulin, 40 units in the morning and 28 at night for diabetes management - Dexcom continuous glucose monitoring system - Zoloft (no indication provided) Social History: - The patient recently moved into a new house, contributing to reported stress levels. - Mention of managing expenses, such as the cost of Dexcom sensors, indicating budget considerations in the household. Diagnostic Results: - Labs: Hemoglobin A1c was 8.3% in March. Problem List - Diabetes Mellitus - Continued monitoring of blood glucose levels through continuous glucose monitoring (Dexcom). - A rise in stress-associated factors due to relocation. Patient Instructions - Schedule and complete pending lab work. - Consult with the insurance company regarding coverage and costs for continuous glucose monitoring devices. - Schedule an eye exam, as it's been some time since the last check-up. - Refill existing prescriptions as discussed. Medications: Refilled insulin lispro 15 units (0.15 mL) subcut TID 20 mL 5RF insulin NPH isoph U-100 human (Humulin N NPH U-100 Insulin (isophane susp)) 48 units in the morning and 28 units at night subcut 2 times a day; 20 mL 1RF 90 days E13.9 - Other specified diabetes mellitus without complications, Z79.4 - terminal operations manager (current) use of insulin
[2024-11-07 15:22] VITALS: BP 128/72; PULSE 107; RESP 18; TEMP 36.8; O2SAT 96; BMI 27.1
== END 2024-11-07 15:41 | disposition home or self-care (01) ==
LOC: HO.HMCC 15:20
PROVIDERS: PCP Internal Medicine; Visit Provider Internal Medicine
DX: Z00.00 Encounter for general adult medical examination without abnormal findings (principal); E13.9 Other specified diabetes mellitus without complications; Z79.4 Long term (current) use of insulin

== ENCOUNTER → 2024-11-07 15:19 | Outpatient (BNVA) | payer OTHER, SELFPAY | PROVIDERS: PCP Internal Medicine; Visit Provider Internal Medicine | DX: Z13.89 Encounter for screening for other disorder (principal) ==